=== PATIENT | male | born 1970 | race Caucasian/White ===

== ENCOUNTER → 2024-01-03 13:26 | Outpatient (REF) | payer OTHER, SELFPAY | LOC: HWRAD 13:26 | PROVIDERS: ATTENDING PHYSICIAN Urology; FAMILY PHYSICIAN Family Medicine | DX: Z85.51 Personal history of malignant neoplasm of bladder (principal); N40.0 Benign prostatic hyperplasia without lower urinary tract symptoms | CPT/HCPCS: 76775 ==